=== PATIENT | male | born 1980 | race Two or more races ===

== ENCOUNTER 2016-10-23 13:38 | Emergency (ER) | payer MEDICAID ==
[2016-10-23 13:51] VITALS: BP 106/69; PULSE 90; RESP 18; TEMP 97.9; O2SAT 98
--- NOTE | 2016-10-23 14:59 | EDPHY ---
H & P Time Seen by Provider: 10/23/16 14:38 HPI/ROS: CHIEF COMPLAINT: Right shoulder pain since April 2016 HISTORY OF PRESENT ILLNESS: 36-year-old male states that in April 2016 he was pulling a trailer hitch and felt immediate anterior right shoulder pain. No direct trauma or fall. He has been experiencing reproducible pain ever since April 2016. No paresthesia. No neck pain. PHYSICAL EXAM (Prior to examination, patient consented to physical exam, hands were washed and my usual and customary physical exam procedures followed) 1) GENERAL: Well-developed, well-nourished, alert and oriented. Appears to be in no acute distress. 2) HEAD: Normocephalic 3) HEENT: sclera anicteric. negative Kaye's. 4) LUNGS: Breathing comfortably. 5) SKIN: full sensation. Intact. 6) MUSCULOSKELETAL: reproducible tenderness to palpation right anterior shoulder with no visible or palpable abnormality beyond pain. No crepitus. No effusion. No pain with axial loading of the glenoid. 7) NEUROLOGIC: Radial ulnar median nerve function intact distally. Bilateral deltoid sensation equal bilaterally. 8) NECK: No midline C-spine pain, full pain-free range of motion the neck. Smoking Status: Current every day smoker Constitutional: Initial Vital Signs Temperature (C) 36.6 C 10/23/16 13:45 Heart Rate 90 10/23/16 13:45 Respiratory Rate 18 10/23/16 13:45 Blood Pressure 106/69 10/23/16 13:45 O2 Sat (%) 98 10/23/16 13:45 O2 Delivery Mode Room Air Allergies/Adverse Reactions: No Known Allergies Allergy (Verified 10/23/16 13:48) Home Medications: Medication Instructions Recorded Cyclobenzaprine [Flexeril 10 MG 10 mg PO TID #10 tab 10/23/16 (RX)] MDM/Departure - MDM ED Course/Re-evaluation: Discussed with the patient possible etiologies for his right shoulder pain. Doubt fracture or dislocation. I do not think that x-ray definitively indicated as this is an injury that occurred several months ago, he sustained no direct trauma at that time. He has no deficits on examination. He has reproducible pain with range of motion. Discussed possibility of rotator cuff injury. Doubt septic arthritis. Doubt cervical pathology although this has been discussed with the patient. In the absence of weakness or neurologic deficits that I think that emergent MRI of the cervical spine and/or shoulders indicated. However, the recommend he follow up with Orthopedics and also recommend he establish primary care. - Depart Disposition: Home, Routine, Self-Care Clinical Impression: Right anterior shoulder pain Condition: Good Instructions: Shoulder Sprain (ED) Additional Instructions: Return to the ER immediately if you experience discoloration, have worsening pain, numbness, tingling, or any other symptoms that concern you. If you received x-rays in the emergency department today, be advised, that ligamentous , tendon, muscular, and other non-bony injury cannot be fully ruled out. Prescriptions: Cyclobenzaprine [Flexeril 10 MG (RX)] 10 mg PO TID #10 tab Referrals: Darrick Powell MD [Medical Doctor] - 5-7 days, call for appt. (Dr. Dwight Powell is an orthopedic surgeon) [facility],. [Clinic] - 5-7 days, call for appt.
== END 2016-10-23 15:00 | disposition home or self-care (01) ==
DX: M25.511 Pain in right shoulder (principal); F17.200 Nicotine dependence, unspecified, uncomplicated

== ENCOUNTER 2016-11-27 21:47 | Emergency (ER) | payer MEDICAID ==
[2016-11-27 21:54] VITALS: TEMP 98.2; O2SAT 97
--- NOTE | 2016-11-27 22:21 | EDPHY ---
H & P Stated Complaint: LUMP ON BACK CAUSING PAIN X 1 YEAR Source: Patient Exam Limitations: No limitations - Personal History Tetanus Vaccine Date: 2006 - Medical/Surgical History Hx Asthma: No Hx Chronic Respiratory Disease: No Hx Diabetes: No Hx Cardiac Disease: No Hx Renal Disease: No Hx Cirrhosis: No Hx Alcoholism: Yes Hx HIV/AIDS: No Hx Splenectomy or Spleen Trauma: No Other PMH: Fx jaw w/ plates; TBI w/ [place]; lac left hand w/ infection, schizoaffective disorder, anxiety, anger issues. - Social History Smoking Status: Current every day smoker Time Seen by Provider: 11/27/16 22:21 HPI/ROS: HPI: This is a 36-year-old male who presents with Chief Complaint: Lump on left flank Location: Left flank/back Quality: Lump Duration: 1 year Signs and Symptoms: No redness, No bleeding, no radiation, no numbness, no weakness, no tingling, no incontinence, no decreased range of motion Timing: Constant Severity: 10/10 Context: Patient presents with a complaint of a soft mobile lump on his left flank thoracic back area that has been present x1 month. He states that the pain is 10/10 for the last year. He denies any fevers/chills/redness/warmth/ drainage. He has not seen any providers regarding this complaint. Chart review shows that patient has a history of chronic narcotic abuse/use. Modifying Factors: None Comment: ROS: see HPI Constitutional: No fever, no chills, no weight loss Eyes: No blurred vision Respiratory: No shortness of breath, no cough Cardiovascular: No chest pain Gastrointestinal: No nausea, no vomiting no diarrhea Genitourinary: No dysuria Extremities: No myalgias Neurologic: No weakness, no numbness Skin: No rashes Hematologic: No bruising, no bleeding MEDICAL/SURGICAL/SOCIAL HISTORY: Fx jaw w/ plates; TBI w/ [place]; lac left hand w/ infection, schizoaffective disorder, anxiety, anger issues. CONSTITUTIONAL: Extremely well-appearing adult male, awake and alert, no obvious distress HEENT: Atraumatic and normocephalic, PERRL, EOMI. Tympanic membranes clear. Oropharynx clear, no exudate and moist pink mucosa. Airway patent. No lymphadenopathy. No meningismus. Cardiovascular: Normal S1/S2, regular rate, regular rhythm, without murmur rub or gallop. PULMONARY/CHEST: Symmetrical and nontender. Clear to auscultation bilaterally. Good air movement. No accessory muscle usage. ABDOMEN: Soft, nondistended, nontender, no rebound, no guarding, no peritoneal signs, no masses or organomegaly. No CVAT. EXTREMITIES: 2/2 pulses, no deformities, no clubbing, no cyanosis or edema. BACK: No midline tenderness, no paraspinous muscle spasm, deep tendon reflexes 2/2 throughout, mobile, flesh colored subcutaneous 2 cm lump noted in thoracic left mid flank area-no surrounding erythema/fluctuance/drainage. Extremely tender to touch anywhere near the area. NEUROLOGICAL: no focal neuro deficits. GCS 15. SKIN: Warm and dry, no erythema. no rash. Good capillary refill. (Emi Azar) Constitutional: Initial Vital Signs Temperature (C) 36.8 C 11/27/16 21:51 Heart Rate 107 H 11/27/16 21:51 Respiratory Rate 18 11/27/16 21:51 Blood Pressure 109/82 H 11/27/16 21:51 O2 Sat (%) 97 11/27/16 21:51 O2 Delivery Mode Room Air Allergies/Adverse Reactions: No Known Allergies Allergy (Verified 10/23/16 13:48) Home Medications: Medication Instructions Recorded Abilify 11/27/16 Capsacian 0.075% 1 applic TP TID PRN #30 gm 11/27/16 Depakote 11/27/16 Minipress 11/27/16 Medical Decision Making ED Course/Re-evaluation: Patient is very labile and angry. I advised that there is no signs of cellulitis/abscess/neurovascular compromise/ tenting of skin/compartment syndrome/extremities and joints examined above and below area of concern and are neurovascularly intact. I offered him a Lidoderm patch and he refused. He states that only Dilaudid will help. I advised the ER does not prescribe pain medications for soft tissue masses. Prescription for capsaicin cream given with follow-up with General surgery if he wants to have it removed (Emi Azar) PHYSICIAN DOCUMENTATION: The patient was evaluated and managed by the Physician Senior Major Gifts Officer. My co- signature indicates that I have reviewed this chart and I agree with the findings and plan of care as documented. I am the secondary supervising physician. (Leny Kaba) Differential Diagnosis: Differential diagnosis includes but is not limited to soft tissue mass. (Emi Azar) - Data Points Medications Given: Discontinued Medications Lidocaine (Lidoderm 5%) 1 ea TD DAILY JOSELYN Stop: 05/27/17 08:59 Last Admin: 11/27/16 22:32 Dose: 1 ea Departure - Departure Disposition: Home, Routine, Self-Care Clinical Impression: Lipoma of back Condition: Good Instructions: Lipoma (ED), Soft Tissue Mass (ED) Additional Instructions: Please follow-up with General surgery for removal of the lipoma. Referrals: Rell Sheehan MD [Medical Doctor] - As per Instructions Prescriptions: Capsacian 0.075% 1 applic TP TID PRN #30 gm PRN Reason: Pain, Moderate
[2016-11-27] MEDS ORDERED: LIDOCAINE 5% 1 EA PATCH TD ONE (22:30)
[2016-11-27 22:49] VITALS: BP 112/61; PULSE 81; RESP 14
[2016-11-28] MEDS ORDERED: LIDOCAINE 5% 1 EA PATCH TD SCH (09:00)
[2016-11-28] MEDS ORDERED: PATCH REMOVAL 1 EA PATCH TD SCH (21:00)
== END 2016-11-27 22:49 | disposition home or self-care (01) ==
DX: D17.1 Benign lipomatous neoplasm of skin and subcutaneous tissue of trunk (principal); F17.200 Nicotine dependence, unspecified, uncomplicated

== ENCOUNTER 2017-01-11 21:08 | Emergency (ER) | payer MEDICAID ==
[2017-01-11 21:14] VITALS: TEMP 98.2
--- NOTE | 2017-01-11 21:25 | EDPHY ---
HPI/HX/ROS/PE/MDM Narrative: CHIEF COMPLAINT: Right arm injury, mouth pain HPI: The patient is a 36 y/o male complaining of right wrist pain and mouth pain secondary to a skateboard accident several hours ago. He was able to walk after the accident, but was bleeding from the mouth. He is unable to bend his right wrist without pain. Denies loss of consciousness, tooth pain, numbness, fever or other pertinent symptoms. REVIEW OF SYSTEMS: Aside from elements discussed in the HPI, a comprehensive 10-point review of systems was reviewed and is negative. PMH: Schizoaffective disorder, anxiety, jaw fracture, TBI SOCIAL HISTORY: Friend at bedside, transient, single PHYSICAL EXAM: General:Patient is alert, in no acute distress. ENT:Eyes are normal to inspection. Laceration to upper right lip. Abrasion to right side of face. Neck: Normal inspection. Full range of motion. Respiratory:No respiratory distress. Breath sounds normal bilaterally. Cardiovascular: Regular rate and rhythm. Strong peripheral pulses. Normal cap refill. Abdomen:The abdomen is nontender to palpation. There are no peritoneal signs. There are normal bowel sounds. Back: Normal to inspection. No tenderness to palpation. Skin: Abrasion to dorsal aspect of left forearm. Tenderness to right wrist and snuffbox. Normal color. No rash. Warm and dry. Normal neuro and motor function. Extremities: Normal appearance. Full range of motion. Neuro: Oriented x3. Normal motor function. Normal sensory function. ED Course: 2204: Reassessed patient and discussed imaging results. His lip laceration will not require sutures. I have advised him to follow up with an orthopedic surgeon in 1 week for repeat right wrist x-rays as there is a question of possible scaphoid fracture. Return precautions provided; patient is comfortable with this plan. - Data Points Imaging Results: Imaging Impressions Wrist X-Ray 01/11/17 21:33 Impression: Suspect acute nondisplaced midshaft navicular fracture. Recommend follow-up radiograph in 7-14 days. Medications Given: Discontinued Medications Tetracaine/Epinephrine/Lidocaine (Let Gel Topical) 1 ea TP EDNOW ONE Stop: 01/11/17 21:33 Last Admin: 01/11/17 21:56 Dose: Not Given General Time Seen by Provider: 01/11/17 21:25 Initial Vital Signs: Initial Vital Signs Temperature (C) 36.8 C 01/11/17 21:12 Heart Rate 112 H 01/11/17 21:12 Respiratory Rate 16 01/11/17 21:12 Blood Pressure 103/72 01/11/17 21:12 O2 Sat (%) 96 01/11/17 21:12 O2 Delivery Mode Room Air Allergies/Adverse Reactions: No Known Allergies Allergy (Verified 10/23/16 13:48) Home Medications: Medication Instructions Recorded Abilify 11/27/16 Capsacian 0.075% 1 applic TP TID PRN #30 gm 11/27/16 Depakote 11/27/16 Minipress 11/27/16 Departure - Departure Disposition: Home, Routine, Self-Care Clinical Impression: Abrasions of multiple sites Lip laceration Qualifiers: Encounter type: initial encounter Qualified Code(s): S01.511A - Laceration without foreign body of lip, initial encounter Right wrist sprain Qualifiers: Encounter type: initial encounter Qualified Code(s): S63.501A - Unspecified sprain of right wrist, initial encounter Condition: Good Instructions: Abrasion (ED), Wrist Sprain (ED), Facial Laceration (ED) Additional Instructions: Rest, ice, elevation. Follow up with an orthopedic surgeon in 1 week for repeat x-rays. You have been referred to Dr. Leone. Follow up with your primary care provider in 72 hours. Return to the Emergency Department for fever, redness, discharge from wound, increasing pain or other worsening of condition. Wear splint at all times until evaluated by specialist. Referrals: [facility],. [Clinic] - As per Instructions Madeleine Leone MD [Medical Doctor] - As per Instructions Report Scribed for: Alfredo Bonilla Report Scribed by: Krystin Chang Date of Report: 01/11/17 Time of Report: 21:25 Physician Review and Approval Statement: Portions of this note were transcribed by an ED scribe. I personally performed the history, physical exam, and medical decision making; and confirm the accuracy of the information in the transcribed note.
[2017-01-11] MEDS ORDERED: LET GEL TOPICAL 1 EA SYR TP ONE (21:32)
[2017-01-11 22:25] VITALS: BP 118/77; PULSE 100; RESP 18; O2SAT 97
== END 2017-01-11 22:24 | disposition home or self-care (01) ==
DX: S63.501A Unspecified sprain of right wrist, initial encounter (principal); S01.511A Laceration without foreign body of lip, initial encounter; S50.812A Abrasion of left forearm, initial encounter; V00.138A Other skateboard accident, initial encounter; Y93.51 Activity, roller skating (inline) and skateboarding
CPT/HCPCS: L3807

== ENCOUNTER 2017-07-14 19:24 | Emergency (ER) | payer MEDICAID ==
[2017-07-14 19:37] VITALS: BP 154/109
--- NOTE | 2017-07-14 20:01 | EDPHY ---
H & P Stated Complaint: Dry eyes/itching x2 days Time Seen by Provider: 07/14/17 19:51 HPI/ROS: CHIEF COMPLAINT: Eye irritation HISTORY OF PRESENT ILLNESS: The patient is a 36-year-old healthy man who comes to the emergency department complaining of bilateral eye irritation and dryness for the last 2 days. No vision changes. No trauma. No foreign body sensation. No erythema. He has had some mild watery discharge for no purulence. He does have a history of mild seasonal allergies. No fevers. No rash. REVIEW OF SYSTEMS: Constitutional: denies: chills, fever, recent illness, recent injury EENTM: See HPI denies: blurred vision, double vision, nose congestion Respiratory: denies: cough, shortness of breath Cardiac: denies: chest pain, irregular heart rate, lightheadedness, palpitations Gastrointestinal/Abdominal: denies: abdominal pain, diarrhea, nausea, vomiting, blood streaked stools Genitourinary: denies: dysuria, frequency, hematuria, pain Musculoskeletal: denies: joint pain, muscle pain Skin: denies: lesions, rash, jaundice, bruising Neurological: denies: headache, numbness, paresthesia, tingling, dizziness, weakness Hematologic/Lymphatic: denies: blood clots, easy bleeding, easy bruising Immunologic/allergic: denies: HIV/AIDS, transplant EXAM: GENERAL: Well-appearing, well-nourished and in no acute distress. HEAD: Atraumatic, normocephalic. EYES: No significant conjunctival injection or edema. Pupils equal round and reactive to light, extraocular movements intact, sclera anicteric, conjunctiva are normal. Visual acuity exam 20/25 in both eyes. ENT: TMs normal, nares patent, oropharynx clear without exudates. Moist mucous membranes. NECK: Normal range of motion, supple without lymphadenopathy or JVD. LUNGS: Breath sounds clear to auscultation bilaterally and equal. No wheezes rales or rhonchi. HEART: Regular rate and rhythm without murmurs, rubs or gallops. ABDOMEN: Soft, nontender, normoactive bowel sounds. No guarding, no rebound. No masses appreciated. BACK: No CVA tenderness, no spinal tenderness, step-offs or deformities EXTREMITIES: Normal range of motion, no pitting or edema. No clubbing or cyanosis. NEUROLOGICAL: Cranial nerves II through XII grossly intact. Normal speech, normal gait. 5/5 strength, normal movement in all extremities, normal sensation PSYCH: Normal mood, normal affect. SKIN: Warm, dry, normal turgor, no visible rashes or lesions. Source: Patient Exam Limitations: No limitations - Personal History Current Tetanus Diphtheria and Acellular Pertussis (TDAP): No Tetanus Vaccine Date: 2006 - Medical/Surgical History Hx Asthma: No Hx Chronic Respiratory Disease: No Hx Diabetes: No Hx Cardiac Disease: No Hx Renal Disease: No Hx Cirrhosis: No Hx Alcoholism: Yes Hx HIV/AIDS: No Hx Splenectomy or Spleen Trauma: No Other PMH: Fx jaw w/ plates; TBI w/ [place]; lac left hand w/ infection, schizoaffective disorder, anxiety, anger issues. Rheumatic fever - Family History Significant Family History: No pertinent family hx - Social History Smoking Status: Current every day smoker Alcohol Use: Sober Drug Use: None Constitutional: Initial Vital Signs Temperature (C) 36.9 C 07/14/17 19:35 Heart Rate 103 H 07/14/17 19:35 Respiratory Rate 20 07/14/17 19:35 Blood Pressure 154/109 H 07/14/17 19:35 O2 Sat (%) 97 07/14/17 19:35 O2 Delivery Mode Room Air Allergies/Adverse Reactions: No Known Allergies Allergy (Verified 07/14/17 19:35) Home Medications: Medication Instructions Recorded Jermainey 11/27/16 Capsacian 0.075% 1 applic TP TID PRN #30 gm 11/27/16 Depakote 11/27/16 Minipress 11/27/16 Medical Decision Making ED Course/Re-evaluation: The patient has no abnormalities found on clinical exam. His complaints are consistent with allergic conjunctivitis. I will start him on antihistamine drops and have him follow up with Ophthalmology. We also discussed indications for returning here to the ER sooner. Differential Diagnosis: Partial list of the Differential diagnosis considered include but were not limited to; allergic conjunctivitis, viral conjunctivitis, bacterial conjunctivitis, and although unlikely based on the history and physical exam, I also considered foreign body, perforation. I discussed these differential diagnoses and the plan with the patient as well as the usual and expected course. The patient understands that the diagnosis is provisional and that in medicine we are not always correct and that further workup is often warranted. Usual and customary warnings were given. All of the patient's questions were answered. The patient was instructed to return to the emergency department should the symptoms at all worsen or return, otherwise to followup with the physician as we discussed. - Data Points Medications Given: Discontinued Medications Naphazoline HCl/Pheniramine Maleate (Visine-A) 1 drops EACHEYE QID JOSELYN Stop: 01/10/18 20:59 Last Admin: 07/14/17 20:08 Dose: 1 drops Departure - Departure Disposition: Home, Routine, Self-Care Clinical Impression: Allergic conjunctivitis of both eyes Condition: Fair Instructions: Conjunctivitis (ED) Referrals: NONE *PRIMARY CARE P,. [Primary Care Provider] - As per Instructions Siri Pinon MD [Medical Doctor] - 1-2 days without fail
[2017-07-14] MEDS ORDERED: NAPHAZOLINE HCL/PHENIR 15 ML OPHT.BTL EACHEYE SCH (21:00)
== END 2017-07-14 20:13 | disposition home or self-care (01) ==
DX: H10.13 Acute atopic conjunctivitis, bilateral (principal); F17.200 Nicotine dependence, unspecified, uncomplicated